=== PATIENT | female | born 1935 | race Caucasian/White ===

== ENCOUNTER → 2016-04-29 | Outpatient (CLI) | payer MEDICARE, OTHER ==
[~2016-04-29] MED LIST: AMIODARONE HCL400 MG PO; ASPIR-LOW81 MG PO; CARDIZEM CD240 MG PO; CATAPRES 0.1MG0.1 MG PO; CORDARONE 200M200 MG PO; ELIQUIS 5 MG TAB5 MG PO; ELIQUIS5 MG PO; FERROUS SULFAT325 M2 PO; HYDROCHLOROTHIA25 MG PO; IMDUR ER TAB 3030 MG PO; LANOXIN TAB 00.25 MG PO; LIPITOR TAB 2020 MG PO; LISINOPRIL20 MG PO; LOPRESSOR 50 MG50 MG PO; NORVASC 5 MG TAB5 MG PO; PREDNISONE10 MG PO; SOTALOL80 MG PO; THERAGRAN TAB1 EA PO
== END ==
LOC: HEART 5 15:48
DX: Z79.899 Other long term (current) drug therapy (principal)
CPT/HCPCS: 94010; 94729

== ENCOUNTER → 2016-05-22 | Outpatient (CLI) | payer MEDICARE | LOC: CT 07:59 | DX: R59.0 Localized enlarged lymph nodes (principal); J90 Pleural effusion, not elsewhere classified | CPT/HCPCS: 71250 ==

== ENCOUNTER 2016-06-22 00:52 | Emergency (ER) | payer MEDICARE, SELFPAY ==
[2016-06-22 03:16] LABS: HEMOGLOBIN 7.5 gm/dl (12.3-15.3); RED BLOOD COUNT 2.89 M/UL (4.00-5.10); WHITE BLOOD COUNT 10.3 K/UL (4.5-11.0)
[2016-06-22 14:37] LABS: WHITE BLOOD COUNT 9.2 K/UL (4.5-11.0)
[2016-06-22 14:47] LABS: HEMOGLOBIN 10.6 gm/dl (12.3-15.3); RED BLOOD COUNT 3.9 M/UL (4.00-5.10)
[2016-06-22 18:34] LABS: HEMOGLOBIN 10.3 gm/dl (12.3-15.3); RED BLOOD COUNT 3.75 M/UL (4.00-5.10); WHITE BLOOD COUNT 8.9 K/UL (4.5-11.0)
== END 2016-06-22 21:46 | disposition home or self-care (01) ==
LOC: ER1 00:52
PROVIDERS: Family Medicine
DX: K92.2 Gastrointestinal hemorrhage, unspecified (principal); D64.9 Anemia, unspecified; R79.1 Abnormal coagulation profile; I48.91 Unspecified atrial fibrillation; Z79.01 Long term (current) use of anticoagulants; Z79.82 Long term (current) use of aspirin; Z79.899 Other long term (current) drug therapy; Z88.0 Allergy status to penicillin; Z88.2 Allergy status to sulfonamides
CPT/HCPCS: 36415; 36430; 80053; 82272; 82550; 82553; 83874; 84484; 85025; 85379; 85610; 85730; 86850; 86900; 86901; 86920; 93005; 96360; 96361; 99285; J7050; P9016

== ENCOUNTER → 2020-04-28 | Outpatient (CLI) | payer MEDICARE ==
[~2020-04-28] MED LIST changes: +AMLODIPINE BESY10 MG PO; +ATORVASTATIN CA40 MG PO; +ELIQUIS2.5 MG PO; +METOPROLOL SUCC25 MG PO; +PACERONE200 MG PO; +VALSARTAN320 MG PO
== END ==
LOC: HEART 5 08:53
DX: I27.20 Pulmonary hypertension, unspecified (principal); Z79.899 Other long term (current) drug therapy
CPT/HCPCS: 94010; 94729

== ENCOUNTER 2020-08-12 00:07 | Inpatient (IN) | payer MEDICARE, SELFPAY ==
[~2020-08-12] VITALS: Ht 154.9 cm; Wt 70.3 kg
[~2020-08-12 00:07] MED LIST changes: -AMLODIPINE BESY10 MG PO; -ATORVASTATIN CA40 MG PO; -ELIQUIS2.5 MG PO; -METOPROLOL SUCC25 MG PO; -PACERONE200 MG PO; -VALSARTAN320 MG PO
[2020-08-12 01:49] LABS: HEMOGLOBIN 12.5 gm/dl (12.3-15.3); RED BLOOD COUNT 4.54 M/UL (4.00-5.10); WHITE BLOOD COUNT 6.2 K/UL (4.5-11.0)
--- NOTE | 2020-08-12 10:37 | NUR ---
PULMONARY ON THE FLOOR ORDERES FOR PT TO BE MOVED TO ICU. REPORT CALLED TO ED WEAVER. PT MOVED ON BIPAP WITH Rt's help
[2020-08-12] MEDS ORDERED: AMLODIPINE BESY10 MG PO (12:03)
[2020-08-12] MEDS ORDERED: METOPROLOL SUCC25 MG PO (12:03)
[2020-08-12] MEDS ORDERED: ATORVASTATIN CA40 MG PO (12:04)
[2020-08-12] MEDS ORDERED: VALSARTAN320 MG PO (12:06)
[2020-08-12] MEDS ORDERED: PACERONE200 MG PO (12:07)
[2020-08-12] MEDS ORDERED: ELIQUIS2.5 MG PO (12:07)
[2020-08-14 05:23] LABS: HEMOGLOBIN 13.4 gm/dl (12.3-15.3); RED BLOOD COUNT 4.86 M/UL (4.00-5.10)
[2020-08-15 05:20] LABS: HEMOGLOBIN 14.3 gm/dl (12.3-15.3); RED BLOOD COUNT 5.16 M/UL (4.00-5.10); WHITE BLOOD COUNT 9.5 K/UL (4.5-11.0)
[2020-08-16 03:30] LABS: RED BLOOD COUNT 5.05 M/UL (4.00-5.10)
[2020-08-16 03:33] LABS: WHITE BLOOD COUNT 12.7 K/UL (4.5-11.0)
[2020-08-17 02:37] LABS: HEMOGLOBIN 13.5 gm/dl (12.3-15.3); RED BLOOD COUNT 4.91 M/UL (4.00-5.10); WHITE BLOOD COUNT 16.2 K/UL (4.5-11.0)
[2020-08-18 03:01] LABS: HEMOGLOBIN 13.2 gm/dl (12.3-15.3); RED BLOOD COUNT 4.84 M/UL (4.00-5.10)
[2020-08-19 02:31] LABS: RED BLOOD COUNT 4.74 M/UL (4.00-5.10); WHITE BLOOD COUNT 13.2 K/UL (4.5-11.0)
[2020-08-20 05:33] LABS: HEMOGLOBIN 12.8 gm/dl (12.3-15.3); RED BLOOD COUNT 4.65 M/UL (4.00-5.10)
[2020-08-20 05:34] LABS: WHITE BLOOD COUNT 18.4 K/UL (4.5-11.0)
[2020-08-21 05:34] LABS: RED BLOOD COUNT 4.39 M/UL (4.00-5.10)
[2020-08-21 05:38] LABS: WHITE BLOOD COUNT 25.7 K/UL (4.5-11.0)
[2020-08-22 04:54] LABS: HEMOGLOBIN 11.9 gm/dl (12.3-15.3); RED BLOOD COUNT 4.35 M/UL (4.00-5.10); WHITE BLOOD COUNT 28.7 K/UL (4.5-11.0)
[2020-08-23 05:07] LABS: HEMOGLOBIN 11.5 gm/dl (12.3-15.3); RED BLOOD COUNT 4.38 M/UL (4.00-5.10)
[2020-08-23 05:08] LABS: WHITE BLOOD COUNT 32.7 K/UL (4.5-11.0)
--- NOTE | 2020-08-23 14:00 | NUR ---
NO CHANGE FROM PREVIOUS ASSESSMENT
[2020-08-24 03:55] LABS: HEMOGLOBIN 11.8 gm/dl (12.3-15.3); RED BLOOD COUNT 4.28 M/UL (4.00-5.10)
[2020-08-24 04:16] LABS: WHITE BLOOD COUNT 30.9 K/UL (4.5-11.0)
[2020-08-24 13:26] LABS: HEMOGLOBIN 11.2 gm/dl (12.3-15.3); RED BLOOD COUNT 4.1 M/UL (4.00-5.10); WHITE BLOOD COUNT 28.7 K/UL (4.5-11.0)
--- NOTE | 2020-08-25 00:03 | NUR ---
NOTIFIED MD THAT PATIENT HAS BEEN TACHYCARDIC WITH O2 SAT FROM 89-90% FOR THE LAST FEW HOURS WITH TACHYPNEA ACCOMPANYING. ATTEMPTED TO PUT PATIENT ON BIPAP AT FIO2 OF 100% AND PATIENT BARELY SUSTAINING 90% O2 SATURATION. MD STATES THAT FOR THE PATIENT TO BE TACHYCARDIC THEY NEED TO SUSTAIN A HEART RATE ABOVE 110 CONSISTENTLY. INFORMED MD THAT PATIENT HAS HAD HEART RATE TO REMAIN ABOVE 110 FOR SEVERAL HOURS NOW. LATEST BLOOD PRESSURE WAS 116/60 MAP OF 73. MD ORDER TO GO AHEAD AND GIVE 5MG OF IV PUSH LOPRESSOR X1 DOSE. WILL CONTINUE TO MONITOR FOR CHANGES AND REPORT NECESSARY CHANGES TO MD.
[2020-08-25 02:51] LABS: HEMOGLOBIN 12.4 gm/dl (12.3-15.3); RED BLOOD COUNT 4.54 M/UL (4.00-5.10); WHITE BLOOD COUNT 26.2 K/UL (4.5-11.0)
[2020-08-26 02:41] LABS: HEMOGLOBIN 11.8 gm/dl (12.3-15.3); RED BLOOD COUNT 4.26 M/UL (4.00-5.10); WHITE BLOOD COUNT 20.9 K/UL (4.5-11.0)
[2020-08-26 02:59] LABS: BUN/CREATININE RATIO 34 (0-10)
--- NOTE | 2020-08-26 07:47 | NUR ---
RN VISITING NOTIFED UNABLE TO GET NEW ORDERS FROM ACCOUNTS SPECIALIST FOR PT WITH 02 SAT 85% ON 100% FIO2 ON BIPAP AND ABG WITH PO2 OF 46 AND COULD NOT REACH DAY SHIFT HOSPITALIST. STACKER STATES TO CALL PULMONOGILIST
[2020-08-27 03:54] LABS: HEMOGLOBIN 12.7 gm/dl (12.3-15.3); RED BLOOD COUNT 4.61 M/UL (4.00-5.10); WHITE BLOOD COUNT 21.1 K/UL (4.5-11.0)
[2020-08-28 05:09] LABS: HEMOGLOBIN 11.2 gm/dl (12.3-15.3); RED BLOOD COUNT 4.06 M/UL (4.00-5.10); WHITE BLOOD COUNT 21.4 K/UL (4.5-11.0)
[2020-08-29 04:28] LABS: HEMOGLOBIN 10.7 gm/dl (12.3-15.3); RED BLOOD COUNT 3.92 M/UL (4.00-5.10); WHITE BLOOD COUNT 17.2 K/UL (4.5-11.0)
[2020-08-30 05:29] LABS: BUN/CREATININE RATIO 55 (0-10)
[2020-08-31 03:03] LABS: HEMOGLOBIN 10.7 gm/dl (12.3-15.3); RED BLOOD COUNT 3.92 M/UL (4.00-5.10); WHITE BLOOD COUNT 17.6 K/UL (4.5-11.0)
[2020-08-31 10:39] LABS: BORDETELLA PARAPERTUSSIS Not Detected (Not Detectd); BORDETELLA PERTUSSIS Not Detected (Not Detectd); CHLAMYDIA PNEUMONIAE Not Detected (Not Detectd); CORONAVIRUS HKU1 Not Detected (Not Detectd); CORONAVIRUS NL63 Not Detected (Not Detectd); CORONAVIRUS OC43 Not Detected (Not Detectd); CORONOAVIRUS 229E Not Detected (Not Detectd); HUMAN METAPNEUMOVIRUS Not Detected (Not Detectd); HUMAN RHINOVIRUS/ENTEROVIRUS Not Detected (Not Detectd); INFLUENZA A Not Detected (Not Detectd); INFLUENZA B Not Detected (Not Detectd); MYCOPLASMA PNEUMONIAE Not Detected (Not Detectd); PARAINFLUENZA VIRUS 1 Not Detected (Not Detectd); PARAINFLUENZA VIRUS 2 Not Detected (Not Detectd); PARAINFLUENZA VIRUS 3 Not Detected (Not Detectd); PARAINFLUENZA VIRUS 4 Not Detected (Not Detectd); RESPIRATORY SYNCYTIAL VIRUS Not Detected (Not Detectd)
[2020-08-31 11:57] LABS: SARS-CoV-2 DETECTED (Not Detectd)
[2020-09-01 04:45] LABS: HEMOGLOBIN 10.4 gm/dl (12.3-15.3); RED BLOOD COUNT 3.8 M/UL (4.00-5.10); WHITE BLOOD COUNT 19.5 K/UL (4.5-11.0)
[2020-09-01 05:05] LABS: BUN/CREATININE RATIO 67 (0-10)
[2020-09-02 06:51] LABS: HEMOGLOBIN 10.6 gm/dl (12.3-15.3); RED BLOOD COUNT 3.84 M/UL (4.00-5.10)
[2020-09-02 06:52] LABS: WHITE BLOOD COUNT 25.8 K/UL (4.5-11.0)
[2020-09-03 05:29] LABS: HEMOGLOBIN 9.9 gm/dl (12.3-15.3); RED BLOOD COUNT 3.62 M/UL (4.00-5.10); WHITE BLOOD COUNT 29.2 K/UL (4.5-11.0)
[2020-09-04 14:09] LABS: ORGANISM ID Not indicated. (.); SPECIMEN SOURCE Urine (.); STREPTOCOCCUS PNEUMONIAE AG Negative (Negative)
== END 2020-09-04 09:29 | disposition expired | DRG 177 ==
LOC: ER1 00:07 → CDU 03:05 → PROG CARE 03:05 → CCU 03:05 → PROG CARE 07:47 → CCU 11:10 → PROG CARE 08-16 18:10 → CCU 08-26 09:16
PROVIDERS: Family Medicine; Internal Medicine; Internal Medicine Infectious Disease; ADMIT Internal Medicine
PROC: 5A09557 Assistance with Respiratory Ventilation, Greater than 96 Consecutive Hours, Continuous Positive Airway Pressure (ICD-10-PCS; principal; 2020-08-12)
PROC: XW033E5 Introduction of Remdesivir Anti-infective into Peripheral Vein, Percutaneous Approach, New Technology Group 5 (ICD-10-PCS; 2020-08-12)
PROC: XW033H5 Introduction of Tocilizumab into Peripheral Vein, Percutaneous Approach, New Technology Group 5 (ICD-10-PCS; 2020-08-12)
PROC: 3E0333Z Introduction of Anti-inflammatory into Peripheral Vein, Percutaneous Approach (ICD-10-PCS; 2020-08-12)
PROC: 5A0935A Assistance with Respiratory Ventilation, Less than 24 Consecutive Hours, High Flow/Velocity Cannula (ICD-10-PCS; 2020-08-12)
PROC: 8E0ZXY6 Isolation (ICD-10-PCS; 2020-08-19)
DX: U07.1 COVID-19 (principal); J80 Acute respiratory distress syndrome; J12.82 Pneumonia due to coronavirus disease 2019; Z66 Do not resuscitate; Z51.5 Encounter for palliative care; G93.41 Metabolic encephalopathy; I21.A1 Myocardial infarction type 2; I50.31 Acute diastolic (congestive) heart failure; J15.9 Unspecified bacterial pneumonia; I46.9 Cardiac arrest, cause unspecified; J44.0 Chronic obstructive pulmonary disease with (acute) lower respiratory infection; E87.1 Hypo-osmolality and hyponatremia; N17.9 Acute kidney failure, unspecified; I13.0 Hypertensive heart and chronic kidney disease with heart failure and stage 1 through stage 4 chronic kidney disease, or unspecified chronic kidney disease; R53.81 Other malaise; I48.91 Unspecified atrial fibrillation; I25.10 Atherosclerotic heart disease of native coronary artery without angina pectoris; N18.9 Chronic kidney disease, unspecified; D50.9 Iron deficiency anemia, unspecified; R74.01 Elevation of levels of liver transaminase levels; D64.89 Other specified anemias; D72.810 Lymphocytopenia; I27.20 Pulmonary hypertension, unspecified; E83.51 Hypocalcemia; N18.30 Chronic kidney disease, stage 3 unspecified; Z88.0 Allergy status to penicillin; Z86.16 Personal history of COVID-19; Z88.2 Allergy status to sulfonamides; Z79.01 Long term (current) use of anticoagulants
CPT/HCPCS: ECHO; 36415; 36600; 71045; 80048; 80053; 80202; 82330; 82550; 82553; 82728; 82803; 83605; 83615; 83735; 83874; 83880; 84484; 85007; 85025; 85027; 85379; 85610; 86140; 86738; 87040; 87081; 87205; 87278; 87633; 87899; 92526; 92610; 93005; 93306; 94640; 94660; 94664; 94760; 96374; 97110-GP-CQ; 97162; 97164; 97530; 97530-GP-CQ; 99285; A6212; C9113; J0692; J0696; J1100; J1160; J1205; J1335; J1650; J1940; J2020; J2185; J2248; J2270; J2405; J2920; J3010; J3262; J3370; J3411; J7030; J7040; J7050; J7070; P9047